=== PATIENT | male | born 1980 | race Hispanic/Latino ===

== ENCOUNTER 2020-01-14 19:39 | Emergency (ER) | payer OTHER ==
[2020-01-14] MEDS ORDERED: Acetaminophen 500 MG TAB ONE (20:08)
[2020-01-15 14:58] LABS: SARS-CoV-2 MS2 Positive; SARS-CoV-2 N Gene Positive; SARS-CoV-2 S Gene Positive; SARS-CoV-2 orf1ab Positive
== END 2020-01-14 20:30 | disposition home or self-care (01) ==
LOC: ERS 19:39 → EDBD 19:39 → ERS 20:30
DX: U07.1 COVID-19 (principal)
CPT/HCPCS: 87635; 99284; U0003